=== PATIENT | male | born 1975 | race Caucasian/White ===

== ENCOUNTER 2020-07-22 00:23 | Inpatient (IN) | payer OTHER ==
[~2020-07-22] VITALS: Ht 175.3 cm; Wt 141.3 kg
[2020-07-22] MEDS ORDERED: ZESTRIL20 MG PO (03:07)
[2020-07-22] MEDS ORDERED: VICODIN HP 10-1 EACH PO (03:09)
[2020-07-22] MEDS ORDERED: NEURONTIN600 MG PO (03:10)
[2020-07-22] MEDS ORDERED: COREG3.125 MG PO (03:12)
[2020-07-22 07:12] LABS: BUN/CREATININE RATIO 22 (0-10)
[2020-07-23 03:36] LABS: HEMOGLOBIN 13.7 gm/dl (14.0-17.5); RED BLOOD COUNT 4.46 M/UL (4.20-5.50); WHITE BLOOD COUNT 11.2 K/UL (4.5-11.0)
[2020-07-23 03:51] LABS: BUN/CREATININE RATIO 23 (0-10)
[2020-07-24 02:26] LABS: HEMOGLOBIN 13.4 gm/dl (14.0-17.5); RED BLOOD COUNT 4.38 M/UL (4.20-5.50); WHITE BLOOD COUNT 12.2 K/UL (4.5-11.0)
[2020-07-24 02:41] LABS: BUN/CREATININE RATIO 22 (0-10)
[2020-07-25 03:01] LABS: HEMOGLOBIN 12.9 gm/dl (14.0-17.5); RED BLOOD COUNT 4.23 M/UL (4.20-5.50); WHITE BLOOD COUNT 10.7 K/UL (4.5-11.0)
[2020-07-25 03:27] LABS: BUN/CREATININE RATIO 20 (0-10)
[2020-07-26 07:47] LABS: BUN/CREATININE RATIO 22 (0-10)
[2020-07-26 07:49] LABS: RED BLOOD COUNT 4.22 M/UL (4.20-5.50); WHITE BLOOD COUNT 8.5 K/UL (4.5-11.0)
[2020-07-27 07:40] LABS: BUN/CREATININE RATIO 19 (0-10)
--- NOTE | 2020-07-27 18:50 | NUR ---
PT CALLED ME TO ROOM AND HE WAS IN TEARS STATING HE WAS NOT GOING TO HAVE ANY PROCEDURES DONE IN THE MORNING R/T DR. SCHROEDER TELLING HIM HE WOULD BE PUT ON A "VENT AND COULD POSSIBLY " BY HAVING THEM DONE. HE ALSO STATED THAT DR. SCHROEDER TOLD HIM THAT HE WOULD PRESCRIBE HIM "SOME MEDICATIONS AND SET HIM UP WITH HOME HEALTH AND LET HIM GO HOME TOMORROW" SO THE PT THOUGHT THAT WAS THE BEST OPTION. I EXPLAINED TO THE PT THAT THE HOSPITALIST WAS THE PERSON THAT DECIDES IF/WHEN HE IS DISCHARGED AND THAT HIS HEART WAS IN A FLUTTER TOLD TO HIM BY DR. DELACRUZ AND THAT HIS HEART RATE WAS IN THE 130-140'S AND TYPICALLY PT'S CANNOT BE DISCHARGED WITH THIS. I ALSO RE EXPLAINED ALL THE RISK WITH THE PROCEDURES HE WAS GOING TO HAVE DONE DR. DELACRUZ HAD DISCUSED WITH HIM WHEN HE SIGNED CONSENTS. THE PT STATES THAT HE WOULD LIKE TO TALK TO DR. DELACRUZ IN AM ABOUT EVERYTHING BECAUSE HE WAS REALLY CONFUSED ABOUT WHAT THE BEST THING FOR HIM TO DO WAS. THE [employer] NURSE WAS PRESENT DURING THIS DISCUSION AND I EXPLAINED FOR THE [employer] NURSE TO NOTIFY DR. SCHROEDER HE WAS IN ANOTHER PT'S ROOM AT THAT TIME.
[2020-07-28 04:41] LABS: HEMOGLOBIN 12.6 gm/dl (14.0-17.5); RED BLOOD COUNT 4.12 M/UL (4.20-5.50)
[2020-07-28 05:04] LABS: BUN/CREATININE RATIO 23 (0-10)
--- NOTE | 2020-07-28 08:58 | NUR ---
PT REQUEST DR. SCHROEDER BE TAKEN OFF HIS CASE, MD NOTIFIED WITH NEW ORDER NOTED
--- NOTE | 2020-07-28 17:30 | NUR ---
DR. SCHROEDER ENTERED PT'S ROOM AND SHUT DOOR. THIS NURSE WENT INTO PTS ROOM WITH DOOR OPEN AND OTHER STAFF PRESENT TO ASK DR. SCHROEDER TO LEAVE THE HAS REQUESTED FOR HIM NOT TO BE BACK IN THE ROOM AND DR. SCHROEDER HAD BEEN NOTIFIED EARLIER IN THE DAY WHEN HE ENTERED THE PTS ROOM. DR. SCHROEDER STATED THE PT HAD NOT TOLD HIM HE DIDN'T WANT HIM BACK IN THE ROOM AND I EXPLAINED THE PT DID NOT HAVE TO TELL HIM I HAD ALREADY NOTIFIED HIM AND IT WAS NOT APPROPIATE FOR HIM TO GO AGAINST THE PT'S WISHES. DR. SCHROEDER THEN STATED THAT HE WAS "JUST CONFRONTING THE PT ABOUT WHAT HE TOLD DR. DELACRUZ, JACQUELIN TURNER, AND THE NURSING STAFF" AND I EXPLAINED AGAIN THAT THE PT DID NOT WANT HIM IN THE ROOM AND WANTED HIM TO PLEASE LEAVE AND THAT IT WAS NOT APPROPIATE TO CONFRONT THE PT. DR. SCHROEDER THEN CALLED THE PT A LIAR AND I ASKED DR. SCHROEDER WHY HE BELIEVED THE PT WAS A LIAR AND DR. SCHROEDER STATED THE PT HAS BEEN A LIAR SINCE ADMIT AND HIS BEEN LYING EVER SINCE. SPRAY STAINER WAS NOTIFIED AND DR. SCHROEDER WENT BACK TO DICTATION AREA.
[2020-07-29 04:31] LABS: HEMOGLOBIN 12.7 gm/dl (14.0-17.5); RED BLOOD COUNT 4.14 M/UL (4.20-5.50); WHITE BLOOD COUNT 10.1 K/UL (4.5-11.0)
[2020-07-29 04:53] LABS: BUN/CREATININE RATIO 24 (0-10)
[2020-07-30 04:22] LABS: HEMOGLOBIN 12.4 gm/dl (14.0-17.5)
[2020-07-30] MEDS ORDERED: GLUCOPHAGE 500500 MG PO (13:46)
[2020-07-30] MEDS ORDERED: DOXYCYCLINE HY100 M2 PO (13:46)
[2020-07-30] MEDS ORDERED: FUROSEMIDE40 MG PO (13:46)
[2020-07-30] MEDS ORDERED: PROTONIX 40 MG40 M1 PO (13:46)
[2020-07-30] MEDS ORDERED: AMIODARONE HCL200 MG PO (13:46)
[2020-07-30] MEDS ORDERED: LANTUS SOL100 UNIT/1 SQ (13:46)
[2020-07-30] MEDS ORDERED: HUMALOG100 UNIT/3 SC (13:46)
[2020-07-30] MEDS ORDERED: JARDIANCE10 MG PO (13:46)
[2020-07-30] MEDS ORDERED: LISINOPRIL5 MG PO (13:46)
[2020-07-30] MEDS ORDERED: ASPIRIN EC81 MG PO (13:46)
[2020-07-30] MEDS ORDERED: ELIQUIS 5 MG TAB5 MG PO (13:46)
[2020-07-30] MEDS ORDERED: ATORVASTATIN CA20 MG PO (13:46)
[2020-07-30] MEDS ORDERED: HYDROCODON-ACE1 EAC2 PO (13:55)
--- NOTE | 2020-07-30 19:38 | NUR ---
PATIENT DISCHARGE COMPLETE. AWAITING LIFE VEST AND ARRIVAL OF FAMILY. VITALS STABLE AT THIS TIME.
== END 2020-07-30 23:30 | disposition home health service (06) | DRG 280 ==
LOC: PROG CARE 00:23
PROVIDERS: Internal Medicine; ADMIT Internal Medicine
PROC: 5A2204Z Restoration of Cardiac Rhythm, Single (ICD-10-PCS; principal; 2020-07-28)
PROC: 4A023N7 Measurement of Cardiac Sampling and Pressure, Left Heart, Percutaneous Approach (ICD-10-PCS; 2020-07-28)
PROC: B211YZZ Fluoroscopy of Multiple Coronary Arteries using Other Contrast (ICD-10-PCS; 2020-07-28)
PROC: B24BZZ4 Ultrasonography of Heart with Aorta, Transesophageal (ICD-10-PCS; 2020-07-28)
DX: I21.4 Non-ST elevation (NSTEMI) myocardial infarction (principal); I50.23 Acute on chronic systolic (congestive) heart failure; N17.9 Acute kidney failure, unspecified; I48.92 Unspecified atrial flutter; E87.1 Hypo-osmolality and hyponatremia; L03.116 Cellulitis of left lower limb; I42.0 Dilated cardiomyopathy; Z68.42 Body mass index [BMI] 45.0-49.9, adult; I11.0 Hypertensive heart disease with heart failure; E66.01 Morbid (severe) obesity due to excess calories; E88.09 Other disorders of plasma-protein metabolism, not elsewhere classified; J44.9 Chronic obstructive pulmonary disease, unspecified; I25.10 Atherosclerotic heart disease of native coronary artery without angina pectoris; F17.210 Nicotine dependence, cigarettes, uncomplicated; E11.65 Type 2 diabetes mellitus with hyperglycemia; I44.30 Unspecified atrioventricular block; E83.42 Hypomagnesemia; R00.0 Tachycardia, unspecified; M51.36 Other intervertebral disc degeneration, lumbar region; I44.7 Left bundle-branch block, unspecified; R53.81 Other malaise; E78.5 Hyperlipidemia, unspecified; Z79.01 Long term (current) use of anticoagulants; Z79.84 Long term (current) use of oral hypoglycemic drugs; Z79.82 Long term (current) use of aspirin; Z79.4 Long term (current) use of insulin; Z91.14 Patient's other noncompliance with medication regimen
CPT/HCPCS: ECHO; 36415; 71045; 80048; 80053; 80061; 80202; 82436; 82550; 82553; 82962; 83036; 83735; 83880; 84133; 84300; 84439; 84443; 84484; 85025; 85027; 85610; 85730; 92960; 93005; 93306; 93312; 93320; 93971; 94640; 94664; 94760; 99152; 99153; C1769; C1894; J0461; J0692; J0696; J1160; J1644; J1940; J2250; J3010; J3370; J3475; J7040; J7070; Q9957; Q9967

== ENCOUNTER → 2020-12-21 | Outpatient (CLI) | payer OTHER ==
[~2020-12-21] MED LIST: AMIODARONE HCL200 MG PO; ASPIRIN EC81 MG PO; ATORVASTATIN CA20 MG PO; COREG3.125 MG PO; DOXYCYCLINE HY100 M2 PO; ELIQUIS 5 MG TAB5 MG PO; FUROSEMIDE40 MG PO; GLUCOPHAGE 500500 MG PO; HUMALOG100 UNIT/3 SC; HYDROCODON-ACE1 EAC2 PO; JARDIANCE10 MG PO; LANTUS SOL100 UNIT/1 SQ; LISINOPRIL5 MG PO; NEURONTIN600 MG PO; PROTONIX 40 MG40 M1 PO; VICODIN HP 10-1 EACH PO; ZESTRIL20 MG PO
== END ==
LOC: HEART 5 09:17
DX: R06.02 Shortness of breath (principal); Z79.899 Other long term (current) drug therapy
CPT/HCPCS: 94060; 94729

== ENCOUNTER 2021-07-01 15:43 | Inpatient (IN) | payer OTHER ==
[~2021-07-01] VITALS: Ht 175.3 cm; Wt 165.3 kg
[2021-07-01 17:31] LABS: RED BLOOD COUNT 4.89 M/UL (4.20-5.50); WHITE BLOOD COUNT 7.2 K/UL (4.5-11.0)
[2021-07-01 17:51] LABS: BUN/CREATININE RATIO 15 (0-10)
[2021-07-02] MEDS ORDERED: TRAZODONE HCL100 MG PO (04:07)
[2021-07-02] MEDS ORDERED: ZOLOFT50 MG PO (04:08)
[2021-07-02 07:17] LABS: HEMOGLOBIN 11.8 gm/dl (14.0-17.5); WHITE BLOOD COUNT 7.2 K/UL (4.5-11.0)
[2021-07-02 07:20] LABS: RED BLOOD COUNT 4.35 M/UL (4.20-5.50)
[2021-07-02 07:46] LABS: BUN/CREATININE RATIO 14 (0-10)
[2021-07-03 05:47] LABS: HEMOGLOBIN 12.7 gm/dl (14.0-17.5); WHITE BLOOD COUNT 6.3 K/UL (4.5-11.0)
[2021-07-03 05:49] LABS: RED BLOOD COUNT 4.82 M/UL (4.20-5.50)
[2021-07-03 06:11] LABS: BUN/CREATININE RATIO 18 (0-10)
[2021-07-04 05:10] LABS: HEMOGLOBIN 12.1 gm/dl (14.0-17.5); RED BLOOD COUNT 4.54 M/UL (4.20-5.50); WHITE BLOOD COUNT 7.2 K/UL (4.5-11.0)
[2021-07-04 05:30] LABS: BUN/CREATININE RATIO 23 (0-10)
[2021-07-05 04:17] LABS: HEMOGLOBIN 12.1 gm/dl (14.0-17.5); RED BLOOD COUNT 4.49 M/UL (4.20-5.50); WHITE BLOOD COUNT 6.6 K/UL (4.5-11.0)
[2021-07-05 04:51] LABS: BUN/CREATININE RATIO 26 (0-10)
[2021-07-06 04:31] LABS: HEMOGLOBIN 11.2 gm/dl (14.0-17.5); RED BLOOD COUNT 4.13 M/UL (4.20-5.50); WHITE BLOOD COUNT 7.2 K/UL (4.5-11.0)
[2021-07-06 05:00] LABS: BUN/CREATININE RATIO 26 (0-10)
[2021-07-07 04:49] LABS: HEMOGLOBIN 11.1 gm/dl (14.0-17.5); RED BLOOD COUNT 4.2 M/UL (4.20-5.50); WHITE BLOOD COUNT 7.3 K/UL (4.5-11.0)
[2021-07-07 05:32] LABS: BUN/CREATININE RATIO 31 (0-10)
[2021-07-08 03:43] LABS: HEMOGLOBIN 11.9 gm/dl (14.0-17.5); RED BLOOD COUNT 4.47 M/UL (4.20-5.50); WHITE BLOOD COUNT 7.1 K/UL (4.5-11.0)
[2021-07-08 04:03] LABS: BUN/CREATININE RATIO 34 (0-10)
[2021-07-09 06:11] LABS: HEMOGLOBIN 11.1 gm/dl (14.0-17.5); RED BLOOD COUNT 4.07 M/UL (4.20-5.50); WHITE BLOOD COUNT 7.2 K/UL (4.5-11.0)
[2021-07-09 06:30] LABS: BUN/CREATININE RATIO 31 (0-10)
--- NOTE | 2021-07-10 20:09 | NUR ---
APPROX 18:45- Upon bedside shift report, pt is noted to be lethargic, barely responsive to sternum rubs, mumbling. Vital signs are stable, blood glucose noted to be 151. Geoff RN notified MD of patient condition change, MD came to floor to assess patient, obtained order for Narcan and ABG. After administration of Narcan 7mg patient is a&o, talking to staff, wanting to eat dinner. Approx 19:30- This RN voiced concerns to MD about patient condition and need for closer monitoring, considering continuous weight gain, ejection fraction, increased edema. Obtained order for PCU transfer.
[2021-07-11 04:33] LABS: HEMOGLOBIN 11.2 gm/dl (14.0-17.5); RED BLOOD COUNT 4.15 M/UL (4.20-5.50); WHITE BLOOD COUNT 8.3 K/UL (4.5-11.0)
[2021-07-12 07:26] LABS: RED BLOOD COUNT 4.47 M/UL (4.20-5.50)
[2021-07-13 05:16] LABS: HEMOGLOBIN 11.8 gm/dl (14.0-17.5); RED BLOOD COUNT 4.34 M/UL (4.20-5.50); WHITE BLOOD COUNT 7.2 K/UL (4.5-11.0)
[2021-07-13 05:38] LABS: BUN/CREATININE RATIO 36 (0-10)
[2021-07-14 02:41] LABS: HEMOGLOBIN 10.9 gm/dl (14.0-17.5); RED BLOOD COUNT 4.03 M/UL (4.20-5.50); WHITE BLOOD COUNT 6.7 K/UL (4.5-11.0)
[2021-07-14 03:00] LABS: BUN/CREATININE RATIO 34 (0-10)
[2021-07-15 02:44] LABS: RED BLOOD COUNT 4.07 M/UL (4.20-5.50); WHITE BLOOD COUNT 6.3 K/UL (4.5-11.0)
[2021-07-15 03:09] LABS: BUN/CREATININE RATIO 34 (0-10)
[2021-07-16 04:56] LABS: HEMOGLOBIN 10.9 gm/dl (14.0-17.5); RED BLOOD COUNT 3.94 M/UL (4.20-5.50); WHITE BLOOD COUNT 6.2 K/UL (4.5-11.0)
[2021-07-16 05:01] LABS: BUN/CREATININE RATIO 34 (0-10)
[2021-07-16] MEDS ORDERED: VANCOMYCIN750 MG/151 IV (12:38)
--- NOTE | 2021-07-16 14:57 | NUR ---
07/16/21 1430 NURSING CONTACTED PATIENTS EMERGANCY CONTACT TITO MCKEON REGARDING THE PATIENTS LIFE VEST. PATIENTS LIFE VEST WAS MISSING THE BATTERIES AND THE CHARGING STATION FOR THE BATTERIES. TITO STATED THAT SHE WOULD LOOK FOR THE ITEMS BUT WAS UNSURE WHERE THEY ARE.
[2021-07-17 04:48] LABS: HEMOGLOBIN 10.8 gm/dl (14.0-17.5); RED BLOOD COUNT 3.91 M/UL (4.20-5.50)
[2021-07-17 04:49] LABS: WHITE BLOOD COUNT 8.1 K/UL (4.5-11.0)
[2021-07-17 05:25] LABS: BUN/CREATININE RATIO 27 (0-10)
[2021-07-19 04:39] LABS: HEMOGLOBIN 10.7 gm/dl (14.0-17.5); WHITE BLOOD COUNT 7.7 K/UL (4.5-11.0)
[2021-07-19 04:53] LABS: BUN/CREATININE RATIO 25 (0-10)
--- NOTE | 2021-07-19 14:40 | NUR ---
07/19/21 1440 REPORT CALLED TO HOME HEALTH, SPOKE WITH BENJAMIN.
== END 2021-07-19 15:50 | disposition home health service (06) | DRG 548 ==
LOC: ER1 15:43 → MED SURG 4 18:51 → PROG CARE 18:51 → CDU 18:51 → MED SURG 4 07-02 03:20 → PROG CARE 07-10 21:23
PROVIDERS: Internal Medicine; Physician Assistant; Physician Assistant Medical; ADMIT Internal Medicine
PROC: 3E04329 Introduction of Other Anti-infective into Central Vein, Percutaneous Approach (ICD-10-PCS; principal; 2021-07-01)
PROC: B24BZZZ Ultrasonography of Heart with Aorta (ICD-10-PCS; 2021-07-02)
PROC: 5A09357 Assistance with Respiratory Ventilation, Less than 24 Consecutive Hours, Continuous Positive Airway Pressure (ICD-10-PCS; 2021-07-11)
PROC: 5A09457 Assistance with Respiratory Ventilation, 24-96 Consecutive Hours, Continuous Positive Airway Pressure (ICD-10-PCS; 2021-07-11)
PROC: 5A09357 Assistance with Respiratory Ventilation, Less than 24 Consecutive Hours, Continuous Positive Airway Pressure (ICD-10-PCS; 2021-07-14)
PROC: 02HV33Z Insertion of Infusion Device into Superior Vena Cava, Percutaneous Approach (ICD-10-PCS; 2021-07-14)
PROC: B548ZZA Ultrasonography of Superior Vena Cava, Guidance (ICD-10-PCS; 2021-07-14)
PROC: 5A09357 Assistance with Respiratory Ventilation, Less than 24 Consecutive Hours, Continuous Positive Airway Pressure (ICD-10-PCS; 2021-07-15)
PROC: 5A09457 Assistance with Respiratory Ventilation, 24-96 Consecutive Hours, Continuous Positive Airway Pressure (ICD-10-PCS; 2021-07-17)
DX: M00.872 Arthritis due to other bacteria, left ankle and foot (principal); I50.23 Acute on chronic systolic (congestive) heart failure; G92.8 Other toxic encephalopathy; I13.0 Hypertensive heart and chronic kidney disease with heart failure and stage 1 through stage 4 chronic kidney disease, or unspecified chronic kidney disease; M86.8X7 Other osteomyelitis, ankle and foot; J96.11 Chronic respiratory failure with hypoxia; L03.116 Cellulitis of left lower limb; I42.0 Dilated cardiomyopathy; I42.8 Other cardiomyopathies; I47.1 Supraventricular tachycardia; E87.1 Hypo-osmolality and hyponatremia; E87.3 Alkalosis; Z68.43 Body mass index [BMI] 50.0-59.9, adult; E66.01 Morbid (severe) obesity due to excess calories; I08.1 Rheumatic disorders of both mitral and tricuspid valves; E11.65 Type 2 diabetes mellitus with hyperglycemia; I44.7 Left bundle-branch block, unspecified; B95.62 Methicillin resistant Staphylococcus aureus infection as the cause of diseases classified elsewhere; I95.9 Hypotension, unspecified; F17.210 Nicotine dependence, cigarettes, uncomplicated; J44.9 Chronic obstructive pulmonary disease, unspecified; E78.5 Hyperlipidemia, unspecified; I11.0 Hypertensive heart disease with heart failure; E11.69 Type 2 diabetes mellitus with other specified complication; Z99.81 Dependence on supplemental oxygen; Z79.01 Long term (current) use of anticoagulants; Z79.82 Long term (current) use of aspirin; Z82.49 Family history of ischemic heart disease and other diseases of the circulatory system; I25.2 Old myocardial infarction
CPT/HCPCS: ECHO; 36415; 36600; 71045; 73700; 80048; 80053; 80202; 82436; 82550; 82553; 82570; 82803; 82962; 83036; 83735; 83874; 83880; 84100; 84132; 84133; 84156; 84300; 84484; 85025; 85027; 85610; 85652; 86140; 87040; 87070; 87077; 87186; 87205; 93005; 93306; 94640; 94660; 94664; 94760; 96374; 96375; 96376; 97110; 97110-GP-CQ; 97162; 97530; 97530-GP-CQ; 99285; C1751; G0378; J1120; J1205; J1940; J2185; J2270; J2310; J3370; J7030; J7070; Q9957; U0002